=== PATIENT | male | born 1965 | race African-American/Black ===

== ENCOUNTER 2024-02-21 12:10 | Emergency (ER) | payer OTHER ==
[~2024-02-21] VITALS: Ht 182.9 cm; Wt 91.0 kg
[2024-02-21 12:22] VITALS: O2SAT 99
[2024-02-21 18:24] VITALS: BP 140/73; PULSE 82; RESP 16; TEMP 98.3
== END 2024-02-21 18:26 | disposition home or self-care (01) ==
LOC: ER 12:10
DX: F10.129 Alcohol abuse with intoxication, unspecified (principal); I10 Essential (primary) hypertension; Y90.9 Presence of alcohol in blood, level not specified
CPT/HCPCS: 82962; 99283